=== PATIENT | female | born 1970 | race Caucasian/White ===

== ENCOUNTER → 2018-01-30 15:46 | Outpatient (CLI) | payer BC, SELFPAY ==
--- NOTE | 2018-01-30 | LES_PTH ---
PATIENT: PRICILA TAPIA LOC: [facility] U#:[id number] AGE/SX: 55/F ROOM: RE01/30/[address]: Dr. Leonard Dinh, MIRYAM : 1970 BED: DIS: SPEC #: [id number] RECD: 01/30/18 15:36 STATUS: BUDDY ROME #: [id number] KRISTIE: 01/30/18 00:[address]: Leonard Dinh DEPT: SURGICAL PATHOLOGY RECD BY: Nadine Ragland ENTERED: 01/31/18 15:28 SP TYPE: Lesion OTHR DR: Dr. César Bird DO Tissues: Skin of face, NOS Procedures: Special Stain Group I Surgery Specimen Level IV GMS Stain (control) HEADER OPERATION: Biopsy right cheek PRE-OP DIAGNOSIS: Right cheek lesion TISSUE SUBMITTED: Fibroma, most probably MICROSCOPIC DIAGNOSIS Right cheek lesion, biopsy: Squamous mucosa with focal ulceration and associated acute inflammation. Focal subepithelial fibrosis, consistent with fibroma. Subepithelial chronic inflammation. Special stain for fungi is negative for organisms; matched control is appropriate. SJ:tyron 02/03/18 MICROSCOPIC DESCRIPTION Slides are reviewed. GROSS DESCRIPTION Received in fixative is one container labeled with the patient's name and designated cheek. The specimen consists of a piece of hyatt mucosal tissue measuring 0.6 x 0.5 x 0.2 cm. The specimen is inked and submitted in one cassette. It will be bisected at the time of embedding. / ROMELIA:tyron 01/31/18 TC:5 CPT: 36533, 90161
== END ==
PROVIDERS: Family Provider Preventive Medicine Occupational Medicine; PCP Preventive Medicine Occupational Medicine; Visit Provider Dentist Oral and Maxillofacial Surgery
DX: L98.499 Non-pressure chronic ulcer of skin of other sites with unspecified severity (principal); L08.9 Local infection of the skin and subcutaneous tissue, unspecified
CPT/HCPCS: 88305; 88312